=== PATIENT | male | born 1980 | race Caucasian/White ===

== ENCOUNTER 2018-08-10 20:33 | Inpatient (IN) ==
[2018-08-11] MEDS ORDERED: Acetaminophen 325 MG Tablet PO PRN (04:34)
[2018-08-11] MEDS ORDERED: HYDROmorphone PF Inj 2 MG/ML Vial IV.PUSH PRN (04:36)
[2018-08-11] MEDS ORDERED: Methocarbamol 500 MG Tablet PO PRN (04:38)
[2018-08-11] MEDS: oxyCODONE/Acetaminophen 10/325 Tablet PO PRN ×4 (07:08→21:43)
--- NOTE | 2018-08-11 13:09 | P.HP ---
History of Present Illness Primary Care Physician: UNKNOWN Chief Complaint: Back pain with inability to ambulate History of Present Illness: 37-year-old male with known history of back pain who presented to the hospital because of acute onset of back pain and difficulty in ambulating. Patient states that his normal state of health until yesterday when he was rolling up a balloon house and when he was bent over rolling it he heard a pop and had sudden onset of back pain where he only could roll over onto his side. He tried to get up to ambulate but was unable to. States that the only he can move is if he is completely bent over at the waist and take very short steps. Patient states that he has had back injury approximately 4 years ago where he fell off a horse and fracturing L2-L3-L4 transverse processes which has healed and he was doing well in the year ago he had another injury where he strained his back. But he has been doing well up until this injury. Patient states that he has been having pain that radiates down his left leg, he is noticed some numbness and tingling going down his left leg as well. Because he was unable to ambulate he went to emergency department for evaluation. Patient had workup done with CT scan which did not indicate any acute abnormality. Because the patient was having ambulation difficulty the ER physician recommended the patient be admitted the hospital for further evaluation. - Diagnosis (1) Intractable low back pain (2) Lumbar radiculopathy, acute Review of Systems All other systems reviewed negative except as stated in HPI Musculoskeletal: Reports abnormal walking, Reports back pain, Reports numbness, Reports radiating pain into limb PMFSH - History History Provided By: Patient - Medical History Medical History: Medical History (Last Updated 08/11/18 @ 13:05 by EMMA Loredo) History of back pain - Surgical History Surgical History: Surgical History (Last Updated 08/11/18 @ 13:05 by EMMA Loredo) No history of previous surgery - Family History Family History: Family History (Last Updated 08/11/18 @ 13:06 by EMMA Loredo) Other Family history of cancer - Tobacco History Second Hand Smoke Exposure: No Tobacco Use In Past 30 Days: No Smoking Status: Former smoker - Alcohol History How Often Do You Have a Drink Containing Alcohol: 2 to 3 times a week - Substance Use History Substance History: No History of Abuse Medications and Allergies Active Medications: Active Medications Acetaminophen (Tylenol) 650 mg PO Q4H PRN PRN Reason: Temp > 100.4 Hydromorphone HCl (Dilaudid Pf Inj) 0.5 mg IV.PUSH Q4H PRN PRN Reason: BREAKTHROUGH PAIN Methocarbamol 1,000 mg/ (Dextrose) 250 mls @ 500 mls/hr IV.SIG Q8HR [facility] Stop: 08/13/18 22:29 Methocarbamol (Robaxin) 500 mg PO Q8HR PRN PRN Reason: MUSCLE SPASM Ondansetron HCl (Zofran Inj) 4 mg IV.PUSH Q6H PRN PRN Reason: NAUSEA OR VOMITING Last Admin: 08/11/18 04:56 Dose: 4 mg Oxycodone/Acetaminophen (Percocet 10/325 Mg) 1 tab PO Q4H PRN PRN Reason: pain 6 to 10 Last Admin: 08/11/18 11:31 Dose: 1 tab Oxycodone/Acetaminophen (Percocet 5/325 Mg) 1 tab PO Q4H PRN PRN Reason: pain 1 to 5 Allergies Allergy/AdvReac Type Severity Reaction Status Date / Time No Known Allergies Allergy Verified 08/10/18 20:40 Home Medications Medication Instructions Recorded Confirmed Type No Known Home Medications 08/10/18 08/10/18 History Exam Vital signs: Vital Signs 08/11/18 04:36 08/11/18 08:00 08/11/18 08:32 Temperature 96.2 F L 96.9 F L Pulse Rate 61 81 Respiratory Rate 18 20 20 Blood Pressure 125/59 L Pulse Oximetry 96 97 08/11/18 12:00 Temperature 96 F L Pulse Rate 88 Respiratory Rate 20 Blood Pressure 135/70 Pulse Oximetry 100 Intake & Output 08/10/18 08/11/18 08/11/18 18:59 06:59 18:59 Output Total 200 / 200 Balance -200 / -200 Weight 104.4 kg Output: Urine 200 / 200 Other: Date of Last Bowel Movement 08/10/18 08/10/18 Weight On Admission 104.4 kg Narrative: GENERAL: Well-developed, well-nourished, in no acute distress. alert and orientated HEENT: Head is normocephalic without any lesions or masses noted. Facial features are symmetric. Eyes: Pupils equal round reactive to light. Extraocular muscles are intact. Conjunctivae were clear. Oropharyngeal: Pharynx without any erythema edema. Tongue is midline without deviation. Buccal mucosa is moist without any masses or lesions NECK: Supple without any masses. Trachea midline no deviation. No JVD, no bruits are appreciated CARDIAC: Regular rhythm, regular rate. S1/S2 are heard. No murmurs gallops or rubs. LUNGS: Clear to auscultation bilaterally. No wheeze, rhonchi or rales. No use of accessory muscles on inspiration or expiration. ABDOMEN: Soft, nontender. Nondistended. Bowel sounds heard in all 4 quadrants. No organomegaly or masses. Negative rebound, negative guarding EXTREMITIES: No edema, pulses are equal bilaterally. No cyanosis or clubbing NEUROLOGY: Mood and affect appear appropriate. Cranial nerves II through XII grossly intact. Muscle strength 5/5 in upper and lower extremities bilaterally. Deep tendon reflexes are 2+ in upper and lower extremities bilaterally. LUMBAR SPINE: There is mild tenderness noted along the left paraspinal musculature. Patient is able to sit up on bending waist without any pain radiating down his leg. Negative straight leg raise. Negative Forest Carloz. Caprini VTE Risk Assessment Caprini VTE Risk Assessment: No/Low Risk (score <= 1) Caprini Risk Assessment Model: Point Value = 1 Point Value = 2 Point Value = 3 Point Value = 5 Age 41-60 Minor surgery BMI > 25 kg/m2 Swollen legs Varicose veins or History of unexplained or recurrent spontaneous Oral contraceptives or hormone replacement Sepsis (< 1 month) Serious lung disease, including pneumonia (< 1 month) Abnormal pulmonary function Acute myocardial infarction Congestive heart failure (< 1 month) History of inflammatory bowel disease Medical patient at bed rest Age 61-74 Arthroscopic surgery Major open surgery (> 45 min) Laparoscopic surgery (> 45 min) Malignancy Confined to bed (> 72 hours) Immobilizing plaster cast Central venous access Age >= 75 History of VTE Family history of VTE Factor V Leiden Prothrombin [id number] Lupus anticoagulant Anticardiolipin antibodies Elevated serum homocysteine Heparin-induced thrombocytopenia Other congenital or acquired thrombophilia Stroke (< 1 month) Elective arthroplasty Hip, pelvis, or leg fracture Acute spinal cord injury (< 1 month) Prophylaxis Regimen: Total Risk Factor Score Risk Level Prophylaxis Regimen 0-1 Low Early ambulation 2 Moderate Order ONE of the following: *Sequential Compression Device (SCD) *Heparin 5000 units SQ BID 3-4 Higher Order ONE of the following medications: *Heparin 5000 units SQ TID *Enoxaparin/Lovenox 40 mg SQ daily (WT < 150 kg, CrCl > 30 mL/min) *Enoxaparin/Lovenox 30 mg SQ daily (WT < 150 kg, CrCl > 10-29 mL/min) *Enoxaparin/Lovenox 30 mg SQ BID (WT < 150 kg, CrCl > 30 mL/min) AND/OR *Sequential Compression Device (SCD) 5 or more Highest Order ONE of the following medications: *Heparin 5000 units SQ TID (Preferred with Epidurals) *Enoxaparin/Lovenox 40 mg SQ daily (WT < 150 kg, CrCl > 30 mL/min) *Enoxaparin/Lovenox 30 mg SQ daily (WT < 150 kg, CrCl > 10-29 mL/min) *Enoxaparin/Lovenox 30 mg SQ BID (WT < 150 kg, CrCl > 30 mL/min) AND *Sequential Compression Device (SCD) Assessment and Plan - Assessment (1) Intractable low back pain Code(s): M54.5 - Low back pain Status: Acute (2) Lumbar radiculopathy, acute Code(s): M54.16 - Radiculopathy, lumbar region Status: Acute - Plan Acute on chronic back pain with acute radiculopathy. -CT scan does not indicate any acute abnormality -MRI of the lumbar spine was performed and indicated large central herniation at L2-L3 causing severe canal stenosis, small central protrusion L4-L5 without canal stenosis. Mild right-sided broad-based protrusion L5-S1 without canal stenosis -Percocet for pain control, Dilaudid for breakthrough pain. -We will give Toradol 30 mg IM x1 and start Robaxin IV -Physical therapy evaluation -Consult neurosurgery for evaluation and recommendations DVT prevention -Low risk, early ambulation
--- NOTE | 2018-08-11 13:42 | MR ---
EXAM DATE: 08/11/2018 12:42 PM EDT AGE/SEX: 37 years / Male INDICATIONS: HNP. Back pain that radiates to left leg. CLINICAL DATA: This is the patient's subsequent encounter. Patient reports that signs and symptoms h ave been present for 2 days and indicates a pain score of 8/10. MEDICAL/SURGICAL HISTORY: None. None. COMPARISON: [facility], CT LUMBAR SPINE W/O CONTRAST, 08/10/2018. . TECHNIQUE: Multiplanar, multisequence MRI of the lumbar spine was performed without contrast. Patie nt was scanned in a sitting position; neutral, flexion, and extension scans were performed in the sa gittal plane. FINDINGS: Vertebra: Homogeneous signal. Normal alignment. Disc space narrowing L2-3 and L5-S1 levels. Disc de siccation L4-5 L5-S1 levels. Degenerative disc disease at L5-S1 with chronic endplate changes. Conus: Normal level and configuration. T12-L1: The thecal sac has a normal diameter. No evidence of disc bulge or protrusion. The neural foramina are patent bilaterally. L1-L2: The thecal sac has a normal diameter. No evidence of disc bulge or protrusion. The neural foramina are patent bilaterally. L2-L3: Large central protrusion with extruded component extending superiorly and inferiorly underne ath the posterior longitudinal ligament compresses the thecal sac posteriorly and causes severe canal stenosis. The neural foramina are patent bilaterally. L3-L4: The thecal sac has a normal diameter. No evidence of disc bulge or protrusion. The neural foramina are patent bilaterally. L4-L5: Small central protrusion abuts the ventral thecal sac without canal stenosis. The neural fo ramina are patent bilaterally. L5-S1: Mild right-sided broad-based protrusion abuts the ventral thecal sac and abuts the right S1 nerve root lateral recess. No canal stenosis. The neural foramina are patent bilaterally. CONCLUSION: 1. Large central herniation at L2-3 causing severe canal stenosis. 2. Small central protrusion L4-5 without canal stenosis. 3. Mild right-sided broad-based protrusion L5-S1 without canal stenosis. Electronically signed by: Mg Luna MD 08/11/2018 1:40 PM EDT
[2018-08-11] MEDS: Methocarbamol Inj 1,000 MG in Dextrose 5% in Water Inj 240 ML IV.SIG SCH ×4 (15:07→21:44)
--- NOTE | 2018-08-11 19:36 | P.CONNS ---
History of Present Illness Service: Neurosurgery Consult date: 08/11/18 Requesting Physician: Mg Amos Reason for Consult: Lumbar L2-3 disc herniation Primary Care Provider: UNKNOWN Chief Complaint: Back pain with inability to ambulate History of Present Illness: 37-year-old gentleman with an acute onset of severe low back pain yesterday while trying to fold balloon house and heard pop in his back with severe pain that radiates into the left anterolateral thigh down to the knee with associated numbness and subjective weakness. He denies any right lower extremity symptoms or any bowel bladder incontinence. He was seen in [facility][1] emergency room and workup included MRI scan lumbar spine which reveals a large disc herniation at the L2-3 level with severe spinal stenosis and mild disc degeneration. He also has mild disc protrusions at L4-5 and L5-S1 levels with associated disc degeneration. He relates a chronic history of low back pain with intermittent flareups with the last one 2 years ago which responded well to epidural steroid injections and conservative management. He works as a entry driver operator. He was transferred to [facility] facility for further management and neurosurgical consultation requested. Review of Systems Constitutional: Denies anorexia, Denies body ache(s), Denies chills, Denies daytime sleepiness, Denies excessive sweating, Denies fatigue, Denies fever(s), Denies headache(s), Denies increased appetite, Denies lack of energy, Denies malaise, Denies night sweats, Denies weakness, Denies weight gain, Denies weight loss, Denies other Eyes: Denies blind spots, Denies blurry vision, Denies bulging eyes, Denies change in vision, Denies double vision, Denies discharge, Denies dry eyes, Denies floaters, Denies irritation, Denies itchy eyes, Denies loss of vision, Denies pain, Denies requires corrective lenses, Denies sensitivity to light, Denies other Ears, Nose, Mouth, and Throat: Denies abnormal hearing, Denies bleeding gums, Denies bad breath, Denies change in voice, Denies dental pain, Denies difficulty swallowing, Denies dizziness, Denies dry mouth, Denies ear discharge , Denies ear pain, Denies facial pain, Denies headache(s), Denies hearing loss, Denies hoarseness, Denies lip swelling, Denies nosebleed, Denies mouth lesions, Denies mouth pain, Denies nasal congestion, Denies nasal discharge, Denies nasal obstruction, Denies nasal trauma, Denies neck lump, Denies neck pain, Denies nose pain, Denies pain with swallowing, Denies poor balance, Denies post nasal drip, Denies ringing in the ears, Denies sinus pain, Denies sinus pressure , Denies sore throat, Denies throat swelling, Denies tongue swelling, Denies other Cardiovascular: Denies chest pain, Denies chest pain at rest, Denies chest pain with activity, Denies excessive sweating, Denies fainting, Denies fast heart rate, Denies foot swelling, Denies generalized swelling, Denies irregular heart rhythm, Denies leg pain with activity, Denies leg sores, Denies leg swelling, Denies lightheadedness, Denies radiating jaw, neck or arm pain, Denies rapid, pounding, or irregular heartbeat, Denies shortness of breath, Denies shortness of breath with activity, Denies shortness of breath when lying down, Denies shortness of breath causing sudden awakening, Denies slow heart rate, Denies other Respiratory: Denies change in phlegm color, Denies chest congestion, Denies cough, Denies coughing up blood, Denies excessive phlegm production, Denies pain on inspiration, Denies pain with cough, Denies shortness of breath, Denies shortness of breath with activity, Denies snoring, Denies stridor, Denies wheezing, Denies other Gastrointestinal: Denies abdominal pain, Denies belching, Denies black, tarry stools, Denies bloating, Denies bright, red blood in stools, Denies change in bowel habits, Denies constant urge to pass stool, Denies change in stools, Denies coffee ground vomit, Denies constipation, Denies cramping, Denies difficulty swallowing, Denies excessive passing of gas, Denies feeling full early, Denies heartburn, Denies incontinent of stools, Denies loose stools, Denies nausea, Denies pain with swallowing, Denies vomiting, Denies vomiting blood, Denies other Genitourinary: Denies blood in semen, Denies blood in urine, Denies decreased urination, Denies difficulty urinating, Denies difficulty with ejaculations, Denies erectile dysfunction, Denies genital lesions, Denies genital pain, Denies painful urination, Denies side pain, Denies frequent nighttime urination , Denies painful ejaculations, Denies penile discharge, Denies scrotal swelling , Denies testicle lump, Denies testicle pain, Denies urinary frequency, Denies urinary hesitancy, Denies urinary incontinence, Denies urinary urgency, Denies other Musculoskeletal: Reports abnormal walking, Reports back pain, Reports muscle weakness, Reports numbness, Reports radiating pain into limb Skin/Breast: Denies acne, Denies bleeding lesions, Denies boil, Denies breast swelling, Denies breast skin changes, Denies breast pain, Denies breast lump, Denies change in breast shape, Denies change in hair, Denies change in skin color, Denies changing lesions, Denies dry skin, Denies excessive hair growth, Denies hair loss, Denies itching, Denies lesions, Denies nail changes, Denies new lesions, Denies nipple discharge, Denies non-healing lesions, Denies redness , Denies sensitivity to light, Denies rash, Denies skin pain, Denies skin ulcer , Denies sores, Denies stretch nicolas, Denies unusual bruising, Denies wounds, Denies yellowing of the skin, Denies other Neurologic: Reports radiating pain, Reports sensory deficit, Reports tingling/ numbness/burning sensations, Reports weakness, Denies abnormal hearing, Denies abnormal movements, Denies abnormal speech, Denies abnormal walking, Denies behavioral changes, Denies burning sensations, Denies confusion, Denies dizziness, Denies fainting, Denies frequent falls, Denies headache(s), Denies lack of coordination, Denies localized weakness, Denies loss of vision, Denies memory loss, Denies numbness, Denies other visual disturbances, Denies restless legs, Denies convulsions, Denies seizure-like activity, Denies tingling, Denies tremor(s), Denies unsteadiness, Denies other Psychiatric: Denies abnormal sleep pattern, Denies anxiety, Denies behavioral changes, Denies change in appetite, Denies change in sex drive, Denies confusion , Denies depression, Denies difficulty concentrating, Denies hearing things others do not hear, Denies hopelessness, Denies irritability, Denies lack of enjoyment, Denies memory loss, Denies mood swings, Denies panic attacks, Denies paranoia, Denies seeing things others do not see, Denies sensing things others do not sense, Denies tactile hallucinations, Denies thoughts of hurting/killing others, Denies thoughts of hurting/killing yourself, Denies other Endocrine: Denies cold intolerance, Denies excessive sweating, Denies flushing, Denies heat intolerance, Denies increased hunger, Denies increased thirst, Denies increased urination, Denies rapid, pounding, or irregular heartbeat, Denies other Hematologic/Lymphatic: Denies easy bleeding, Denies easy bruising, Denies enlarged lymph nodes, Denies other Allergic/Immunologic: Denies GI upset with certain foods, Denies hives, Denies itchy eyes, Denies lip swelling, Denies seasonal runny nose, Denies throat swelling, Denies tongue swelling, Denies wheezing, Denies other PMFSH - History History Provided By: Patient - Medical History Medical History: Medical History (Last Reviewed 08/11/18 @ 19:32 by Parker Moeller MD) History of back pain - Surgical History Surgical History: Surgical History (Last Reviewed 08/11/18 @ 19:32 by Parker Moeller MD) No history of previous surgery - Family History Family History: Family History (Last Reviewed 08/11/18 @ 19:32 by Parker Moeller MD) Other Family history of cancer - Tobacco History Second Hand Smoke Exposure: No Tobacco Use In Past 30 Days: No Smoking Status: Former smoker - Alcohol History How Often Do You Have a Drink Containing Alcohol: 2 to 3 times a week - Substance Use History Substance History: No History of Abuse Medications and Allergies Active Medications: Active Medications Acetaminophen (Tylenol) 650 mg PO Q4H PRN PRN Reason: Temp > 100.4 Methocarbamol 1,000 mg/ (Dextrose) 250 mls @ 500 mls/hr IV.SIG Q8HR [facility]NELIUS Stop: 08/14/18 06:29 Last Infusion: 08/11/18 16:10 Dose: Infused Ondansetron HCl (Zofran Inj) 4 mg IV.PUSH Q6H PRN PRN Reason: NAUSEA OR VOMITING Last Admin: 08/11/18 04:56 Dose: 4 mg Oxycodone/Acetaminophen (Percocet 10/325 Mg) 1 tab PO Q4H PRN PRN Reason: pain 6 to 10 Last Admin: 08/11/18 16:42 Dose: 1 tab Oxycodone/Acetaminophen (Percocet 5/325 Mg) 1 tab PO Q4H PRN PRN Reason: pain 1 to 5 Allergies Allergy/AdvReac Type Severity Reaction Status Date / Time No Known Allergies Allergy Verified 08/10/18 20:40 Home Medications Medication Instructions Recorded Confirmed Type No Known Home Medications 08/10/18 08/10/18 History Exam Vital signs: Vital Signs 08/11/18 04:36 08/11/18 08:00 08/11/18 08:32 Temperature 96.2 F L 96.9 F L Pulse Rate 61 81 Respiratory Rate 18 20 20 Blood Pressure 125/59 L Pulse Oximetry 96 97 08/11/18 12:00 08/11/18 14:46 08/11/18 16:00 Temperature 96 F L 97.8 F Pulse Rate 88 100 H Respiratory Rate 20 20 20 Blood Pressure 135/70 137/74 Pulse Oximetry 100 94 L 08/11/18 16:36 Temperature Pulse Rate Respiratory Rate 20 Blood Pressure Pulse Oximetry Intake & Output 08/11/18 08/11/18 08/12/18 06:59 18:59 06:59 Intake Total 692 / 692 Output Total 200 / 200 Balance -200 / -200 692 / 692 Weight 104.4 kg Intake: IV 250 / 250 Robaxin Inj 1,000 MG In D5W Inj 250 / 250 240 ML @ 500 mls/hr IV.SIG Q8HR [facility] Rx#:[id number] Oral 442 / 442 Output: Urine 200 / 200 Other: # Voids 2 Date of Last Bowel Movement 08/10/18 08/10/18 Weight On Admission 104.4 kg - Constitutional mild distress - Routine HEENT Exam Head: Present: normocephalic, atraumatic Eye: Present: EOMI, PERRL ENT: Present: mucous membranes moist, oropharynx clear, external ear normal - Routine Neck Exam Present: supple, full ROM - Routine Respiratory Exam Present: CTA bilaterally - Routine Cardiovascular Exam Present: RRR, S1, S2 - Routine Abdominal Exam Present: soft, normoactive bowel sounds - Routine Extremities Exam Present: full ROM - Routine Skin Exam Present: intact - Routine Neurological Exam Present: oriented X3, CN II-XII intact, sensory deficit (Left anterolateral thigh and lateral calf area decreased sensation to light touch), motor deficit ( Giveaway weakness in the left iliopsoas and quadriceps; good strength in dorsiflexion plantarflexion in the left leg and the right leg 5/5 strength), plantar reflex, moving all extremities, vision grossly intact, normal speech Results - Diagnostic Findings Additional findings: Impressions Lumbar Spine MRI 08/11/18 00:00 CONCLUSION: 1. Large central herniation at L2-3 causing severe canal stenosis. 2. Small central protrusion L4-5 without canal stenosis. 3. Mild right-sided broad-based protrusion L5-S1 without canal stenosis. Assessment and Plan - Assessment (1) Herniated nucleus pulposus, L2-3 Code(s): M51.26 - Other intervertebral disc displacement, lumbar region Status : Acute (2) Intractable low back pain Code(s): M54.5 - Low back pain Status: Acute (3) Lumbar radiculopathy, acute Code(s): M54.16 - Radiculopathy, lumbar region Status: Acute - Plan 37-year-old gentleman with a large L2-3 disc herniation and severe stenosis spinal stenosis with intractable back pain and left L2-L3 radiculopathy. Treatment options were discussed including continued consider management with physical therapy and pain management as well as course of epidural steroid injections. The option of L2-3 microdiscectomy was also discussed along with the risks and benefits involved. He will contemplate on his options with his family and inform us of his decision accordingly.
[2018-08-12] MEDS: oxyCODONE/Acetaminophen 10/325 Tablet PO PRN ×5 (03:58→20:49)
[2018-08-12] MEDS: Methocarbamol Inj 1,000 MG in Dextrose 5% in Water Inj 240 ML IV.SIG SCH ×6 (05:45→21:21)
[2018-08-12 11:24] LABS: Baso % (Auto) 0.3 % (0.0-2.0); Eos # (Auto) 0.1 th/mm3 (0.0-0.4); Eos % (Auto) 1.6 % (0.0-4.0); Hematocrit 44.4 % (39.0-51.0); Hemoglobin 15.4 gm/dL (13.0-17.0); Lymph # (Auto) 2.6 th/mm3 (1.0-4.8); Lymph % (Auto) 31.7 % (9.0-44.0); Mean Corpuscular HGB Conc 34.6 % (32.0-36.0); Mean Corpuscular Hemoglobin 30.1 pg (27.0-34.0); Mean Corpuscular Volume 87.1 fL (80.0-100.0); Mean Platelet Volume 8.4 fL (7.0-11.0); Mono # (Auto) 0.8 th/mm3 (0.0-0.9); Mono % (Auto) 9.2 % (0.0-8.0); Neut # (Auto) 4.7 th/mm3 (1.8-7.7); Neut % (Auto) 57.2 % (16.0-70.0); Platelet Count 259 th/mm3 (150-450); Red Cell Distribution Width 13.6 % (11.6-17.2); White Blood Count 8.3 th/mm3 (4.0-11.0)
[2018-08-12 11:37] LABS: Alanine Aminotransferase 27 U/L (12-78); Albumin 3.8 g/dL (3.4-5.0); Anion Gap 7 meq/L (5-15); Aspartate Aminotransferase 24 U/L (15-37); Blood Urea Nitrogen 9 mg/dL (7-18); Calcium 8.4 mg/dL (8.5-10.1); Carbon Dioxide 32.1 meq/L (21.0-32.0); Chloride 103 meq/L (98-107); Glomerular Filtration Rate 54 mL/min (>89); Glucose,Random 95 mg/dL (74-106); Potassium 4.2 meq/L (3.5-5.1); Sodium 142 meq/L (136-145)
[2018-08-12 11:45] LABS: Alkaline Phosphatase 59 U/L (45-117); Free T4 (Free Thyroxine) 1.15 ng/dL (0.76-1.46); Phosphorus 3.5 mg/dL (2.5-4.9); Total Protein 6.9 g/dL (6.4-8.2)
[2018-08-12] MEDS ORDERED: Morphine Sulfate Inj 2 MG/ML Vial IV.PUSH PRN (12:08)
[2018-08-12] MEDS ORDERED: Naloxone Inj 0.4 MG/ML Vial IV.PUSH PRN (12:08)
[2018-08-12] MEDS ORDERED: Morphine Inj 4 MG/ML Vial IV.PUSH PRN ×3 (12:08)
--- NOTE | 2018-08-12 12:11 | P.PNIM ---
Subjective Interval history: Chief Complaint: Back pain with inability to ambulate History of Present Illness: 37-year-old male with known history of back pain who presented to the hospital because of acute onset of back pain and difficulty in ambulating. Patient states that his normal state of health until yesterday when he was rolling up a balloon house and when he was bent over rolling it he heard a pop and had sudden onset of back pain where he only could roll over onto his side. He tried to get up to ambulate but was unable to. States that the only he can move is if he is completely bent over at the waist and take very short steps. Patient states that he has had back injury approximately 4 years ago where he fell off a horse and fracturing L2-L3-L4 transverse processes which has healed and he was doing well in the year ago he had another injury where he strained his back. But he has been doing well up until this injury. Patient states that he has been having pain that radiates down his left leg, he is noticed some numbness and tingling going down his left leg as well. Because he was unable to ambulate he went to emergency department for evaluation. Patient had workup done with CT scan which did not indicate any acute abnormality. Because the patient was having ambulation difficulty the ER physician recommended the patient be admitted the hospital for further evaluation. 10-11 SEEN BY NEUROSURGERY PATIENT STATES HE IS CONSIDERING SURGERY IF IT IS OFFERED TO HIM STILL HAVING PAIN AND NUMBNESS GOING DOWN LEFT LEG DW PT AND RN WILL CONSULT PT AND OT LABS START FLUIDS FOR DEHYDRATION AND RENAL INSUFFICIENCY Physical Exam Vital signs: Vital Signs 08/11/18 14:46 08/11/18 16:00 08/11/18 16:36 Temperature 97.8 F Pulse Rate 100 H Respiratory Rate 20 20 20 Blood Pressure 137/74 Pulse Oximetry 94 L 08/11/18 20:00 08/12/18 00:00 08/12/18 04:00 Temperature 98.4 F 97.8 F 97.4 F L Pulse Rate 70 63 71 Respiratory Rate 18 16 16 Blood Pressure 147/86 H 150/67 H 134/64 Pulse Oximetry 97 95 08/12/18 08:00 Temperature 97.4 F L Pulse Rate 57 L Respiratory Rate 18 Blood Pressure 120/86 Pulse Oximetry 96 Intake & Output 08/11/18 08/12/18 08/12/18 18:59 06:59 18:59 Intake Total 692 / 692 1210 / 1210 Output Total 700 / 700 Balance 692 / 692 510 / 510 Weight 106.7 kg Intake: IV 250 / 250 500 / 500 Robaxin Inj 1,000 MG In D5W Inj 250 / 250 500 / 500 240 ML @ 500 mls/hr IV.SIG Q8HR CORNELIUS Rx#:[id number] Oral 442 / 442 710 / 710 Output: Urine 700 / 700 Other: # Voids 2 Date of Last Bowel Movement 08/10/18 08/10/18 # Bowel Movements 0 Narrative: GENERAL: Well-developed, well-nourished, in no acute distress. alert and orientated HEENT: Head is normocephalic without any lesions or masses noted. Facial features are symmetric. Eyes: Pupils equal round reactive to light. Extraocular muscles are intact. Conjunctivae were clear. Oropharyngeal: Pharynx without any erythema edema. Tongue is midline without deviation. Buccal mucosa is moist without any masses or lesions NECK: Supple without any masses. Trachea midline no deviation. No JVD, no bruits are appreciated CARDIAC: Regular rhythm, regular rate. S1/S2 are heard. No murmurs gallops or rubs. LUNGS: Clear to auscultation bilaterally. No wheeze, rhonchi or rales. No use of accessory muscles on inspiration or expiration. ABDOMEN: Soft, nontender. Nondistended. Bowel sounds heard in all 4 quadrants. No organomegaly or masses. Negative rebound, negative guarding EXTREMITIES: No edema, pulses are equal bilaterally. No cyanosis or clubbing NEUROLOGY: Mood and affect appear appropriate. Cranial nerves II through XII grossly intact. Muscle strength 5/5 in upper and lower extremities bilaterally. Deep tendon reflexes are 2+ in upper and lower extremities bilaterally. LUMBAR SPINE: There is mild tenderness noted along the left paraspinal musculature. Patient is able to sit up on bending waist without any pain radiating down his leg. Negative straight leg raise. Negative Forest Carloz. Results - Labs CBC & Chem 7: 08/12/18 10:34 08/12/18 10:34 Laboratory Results - last 24 hr 08/12/18 08/12/18 10:34 10:34 WBC 8.3 RBC 5.10 Hgb 15.4 Hct 44.4 MCV 87.1 MCH 30.1 MCHC 34.6 RDW 13.6 Plt Count 259 MPV 8.4 Neut % (Auto) 57.2 Lymph % (Auto) 31.7 Dawes % (Auto) 9.2 H Eos % (Auto) 1.6 Baso % (Auto) 0.3 Neut # (Auto) 4.7 Lymph # (Auto) 2.6 Dawes # (Auto) 0.8 Eos # (Auto) 0.1 Baso # (Auto) 0.0 WBC Differential . Differential Comment Auto diff final Sodium 142 Potassium 4.2 Chloride 103 Carbon Dioxide 32.1 H Anion Gap 7 BUN 9 Creatinine 1.49 H Estimated GFR 54 L Random Glucose 95 Calcium 8.4 L Phosphorus 3.5 Magnesium 2.0 Total Bilirubin 0.7 AST 24 ALT 27 Alkaline Phosphatase 59 Total Protein 6.9 Albumin 3.8 TSH 1.960 Free T4 1.15 - Imaging Impressions Lumbar Spine MRI 08/11/18 00:00 CONCLUSION: 1. Large central herniation at L2-3 causing severe canal stenosis. 2. Small central protrusion L4-5 without canal stenosis. 3. Mild right-sided broad-based protrusion L5-S1 without canal stenosis. Assessment and Plan - Assessment (1) Intractable low back pain Code(s): M54.5 - Low back pain Status: Acute (2) Lumbar radiculopathy, acute Code(s): M54.16 - Radiculopathy, lumbar region Status: Acute - Plan Acute on chronic back pain with acute radiculopathy. -CT scan does not indicate any acute abnormality -MRI of the lumbar spine was performed and indicated large central herniation at L2-L3 causing severe canal stenosis, small central protrusion L4-L5 without canal stenosis. Mild right-sided broad-based protrusion L5-S1 without canal stenosis -Percocet for pain control, Dilaudid for breakthrough pain. -We will give Toradol 30 mg IM x1 and start Robaxin IV -Physical therapy evaluation -Consult neurosurgery for evaluation and recommendations PT AND OT TO EVAL AND TREAT RENAL INSUFFICIENCY/DEHYDRATION FLUIDS AVOID NEPHROTOXIC MEDS AM LAB DVT prevention -Low risk, early ambulation Code Status: FULL CODE Discussed Condition With: RN AND PT AND CM Discharge Planning: PENDING NEUROSURGERY CLEARANCE
[2018-08-12] MEDS ORDERED: Sodium Chloride 0.9% 2 ML Flush PRN IV.FLUSH (12:39)
[2018-08-12 12:48] LABS: Hemoglobin A1c 5.3 % (4.3-6.0)
[2018-08-12] MEDS: Sod Chloride 0.9% Inj 1,000 ML IV.CONT SCH ×3 (13:52→22:45)
--- NOTE | 2018-08-12 17:07 | P.PNNS ---
Subjective Interval history: 37-year-old gentleman with intractable back pain and radiculopathy with a large L2-3 disc herniation with severe spinal stenosis. He relates that the symptoms are worsened today with pain also radiating to the right thigh and he feels like his legs are giving out on him when trying to walk. Patient and his are requesting to proceed with surgery. Physical Exam Vital signs: Vital Signs 08/11/18 20:00 08/12/18 00:00 08/12/18 04:00 Temperature 98.4 F 97.8 F 97.4 F L Pulse Rate 70 63 71 Respiratory Rate 18 16 16 Blood Pressure 147/86 H 150/67 H 134/64 Pulse Oximetry 97 95 08/12/18 08:00 08/12/18 12:00 Temperature 97.4 F L 98.5 F Pulse Rate 57 L 64 Respiratory Rate 18 18 Blood Pressure 120/86 120/73 Pulse Oximetry 96 95 Intake & Output 08/11/18 08/12/18 08/12/18 18:59 06:59 18:59 Intake Total 692 / 692 1210 / 1210 Output Total 700 / 700 Balance 692 / 692 510 / 510 Weight 106.7 kg Intake: IV 250 / 250 500 / 500 Robaxin Inj 1,000 MG In D5W Inj 250 / 250 500 / 500 240 ML @ 500 mls/hr IV.SIG Q8HR CORNELIUS Rx#:[id number] Oral 442 / 442 710 / 710 Output: Urine 700 / 700 Other: # Voids 2 Date of Last Bowel Movement 08/10/18 08/10/18 # Bowel Movements 0 - Constitutional mild distress, average body habitus - Routine HEENT Exam Head: Present: normocephalic, atraumatic Eye: Present: EOMI, PERRL ENT: Present: mucous membranes moist, oropharynx clear, external ear normal - Routine Neck Exam Present: supple, full ROM - Routine Respiratory Exam Present: CTA bilaterally - Routine Cardiovascular Exam Present: RRR, S1, S2 - Routine Abdominal Exam Present: soft, normoactive bowel sounds - Routine Extremities Exam Present: full ROM - Routine Skin Exam Present: intact - Routine Neurological Exam Present: oriented X3, CN II-XII intact, sensory deficit (Numbness in the anterolateral left thigh and calf), motor deficit (Giveaway weakness iliopsoas and quadriceps left more than right), plantar reflex, normal speech Assessment and Plan - Assessment (1) Herniated nucleus pulposus, L2-3 Code(s): M51.26 - Other intervertebral disc displacement, lumbar region Status : Acute (2) Intractable low back pain Code(s): M54.5 - Low back pain Status: Acute (3) Lumbar radiculopathy, acute Code(s): M54.16 - Radiculopathy, lumbar region Status: Acute - Plan 37-year-old gentleman with a large L2-3 disc herniation and severe stenosis spinal stenosis with intractable back pain, numbness and subjective weakness with difficulty ambulating. Procedure of L2-3 hemilaminotomy with microdiscectomy was discussed along with the risks and benefits involved. No guarantees given. Patient and his had multiple questions which were answered and they are requesting to proceed and accordingly this will be scheduled for tomorrow.
[2018-08-12] MEDS ORDERED: Bisacodyl 10 MG Supp RECTAL PRN (17:39)
[2018-08-12] MEDS: Senna/Docusate Sodium 8.6/50 MG Tablet PO SCH (20:49)
[2018-08-12] MEDS: Sodium Chloride 0.9% 2 ML Flush BID IV.FLUSH SCH (20:50)
[2018-08-13] MEDS: oxyCODONE/Acetaminophen 10/325 Tablet PO PRN ×4 (03:45→20:50)
[2018-08-13] MEDS: Methocarbamol Inj 1,000 MG in Dextrose 5% in Water Inj 240 ML IV.SIG SCH ×6 (05:30→21:05)
[2018-08-13] MEDS: Sod Chloride 0.9% Inj 1,000 ML IV.CONT SCH ×3 (06:51→20:47)
[2018-08-13] MEDS: Senna/Docusate Sodium 8.6/50 MG Tablet PO SCH ×2 (08:06→20:50)
[2018-08-13] MEDS: Sodium Chloride 0.9% 2 ML Flush BID IV.FLUSH SCH ×2 (08:06→20:51)
[2018-08-13 10:33] LABS: Baso % (Auto) 0.4 % (0.0-2.0); Eos # (Auto) 0.3 th/mm3 (0.0-0.4); Eos % (Auto) 3.3 % (0.0-4.0); Hematocrit 44.2 % (39.0-51.0); Hemoglobin 15.1 gm/dL (13.0-17.0); Lymph # (Auto) 2.3 th/mm3 (1.0-4.8); Mean Corpuscular HGB Conc 34.1 % (32.0-36.0); Mean Corpuscular Hemoglobin 29.8 pg (27.0-34.0); Mean Corpuscular Volume 87.3 fL (80.0-100.0); Mono # (Auto) 0.7 th/mm3 (0.0-0.9); Mono % (Auto) 8.9 % (0.0-8.0); Neut # (Auto) 4.4 th/mm3 (1.8-7.7); Neut % (Auto) 57.4 % (16.0-70.0); Platelet Count 265 th/mm3 (150-450); Red Blood Count 5.06 mil/mm3 (4.50-5.90); Red Cell Distribution Width 13.3 % (11.6-17.2); White Blood Count 7.7 th/mm3 (4.0-11.0)
[2018-08-13 11:16] LABS: Alanine Aminotransferase 27 U/L (12-78); Albumin 3.8 g/dL (3.4-5.0); Anion Gap 7 meq/L (5-15); Aspartate Aminotransferase 22 U/L (15-37); Blood Urea Nitrogen 10 mg/dL (7-18); Calcium 8.3 mg/dL (8.5-10.1); Carbon Dioxide 31.7 meq/L (21.0-32.0); Chloride 106 meq/L (98-107); Glomerular Filtration Rate 57 mL/min (>89); Glucose,Random 82 mg/dL (74-106); Magnesium 2.2 mg/dL (1.5-2.5); Phosphorus 3.4 mg/dL (2.5-4.9); Potassium 4.3 meq/L (3.5-5.1); Sodium 145 meq/L (136-145)
[2018-08-13 11:18] LABS: Alkaline Phosphatase 58 U/L (45-117); Total Protein 6.8 g/dL (6.4-8.2)
--- NOTE | 2018-08-13 11:44 | P.PNIM ---
Subjective Interval history: 37-year-old male with known history of back pain who presented to the hospital because of acute onset of back pain and difficulty in ambulating. Patient states that his normal state of health until yesterday when he was rolling up a balloon house and when he was bent over rolling it he heard a pop and had sudden onset of back pain where he only could roll over onto his side. He tried to get up to ambulate but was unable to. States that the only he can move is if he is completely bent over at the waist and take very short steps. Patient states that he has had back injury approximately 4 years ago where he fell off a horse and fracturing L2-L3-L4 transverse processes which has healed and he was doing well in the year ago he had another injury where he strained his back. But he has been doing well up until this injury. Patient states that he has been having pain that radiates down his left leg, he is noticed some numbness and tingling going down his left leg as well. Because he was unable to ambulate he went to emergency department for evaluation. Patient had workup done with CT scan which did not indicate any acute abnormality. Because the patient was having ambulation difficulty the ER physician recommended the patient be admitted the hospital for further evaluation. 10-11 SEEN BY NEUROSURGERY PATIENT STATES HE IS CONSIDERING SURGERY IF IT IS OFFERED TO HIM STILL HAVING PAIN AND NUMBNESS GOING DOWN LEFT LEG DW PT AND RN WILL CONSULT PT AND OT LABS START FLUIDS FOR DEHYDRATION AND RENAL INSUFFICIENCY 08-13 TO HAVE PROCEDURE OF L2-L3 HEMILAMINOTOMY WITH MICRODISCECTOMY TONIGHT WITH DR KATE HAD GOOD BMS CONSTIPATION IS RESOLVED REMAINS RENAL INSUFFICIENT CONTINUE IV FLUIDS DW RN AND PT AND CM Physical Exam Vital signs: Vital Signs 08/12/18 12:00 08/12/18 16:00 08/12/18 20:00 Temperature 98.5 F 98.4 F 97.8 F Pulse Rate 64 61 79 Respiratory Rate 18 18 16 Blood Pressure 120/73 123/80 132/62 Pulse Oximetry 95 96 95 08/13/18 00:00 08/13/18 04:00 08/13/18 08:00 Temperature 97.7 F 98.1 F 97.6 F Pulse Rate 67 58 L 62 Respiratory Rate 16 16 18 Blood Pressure 129/67 126/79 121/76 Pulse Oximetry 93 L 96 97 Intake & Output 08/12/18 08/13/1818 18:59 06:59 18:59 Intake Total 250 / 250 2780 / 2780 Output Total 900 / 900 Balance 250 / 250 1880 / 1880 Weight 106.9 kg Intake: IV 250 / 250 2300 / 2300 NS Inj 1,000 ML @ 125 mls/hr IV 1800 / 1800 .CONT .Q8H CORNELIUS Rx#:[id number] Robaxin Inj 1,000 MG In D5W Inj 250 / 250 500 / 500 240 ML @ 500 mls/hr IV.SIG Q8HR CORNELIUS Rx#:[id number] Oral 480 / 480 Output: Urine 900 / 900 Other: Date of Last Bowel Movement 08/10/18 # Bowel Movements 0 Narrative: GENERAL: Well-developed, well-nourished, in no acute distress. alert and orientated HEENT: Head is normocephalic without any lesions or masses noted. Facial features are symmetric. Eyes: Pupils equal round reactive to light. Extraocular muscles are intact. Conjunctivae were clear. Oropharyngeal: Pharynx without any erythema edema. Tongue is midline without deviation. Buccal mucosa is moist without any masses or lesions NECK: Supple without any masses. Trachea midline no deviation. No JVD, no bruits are appreciated CARDIAC: Regular rhythm, regular rate. S1/S2 are heard. No murmurs gallops or rubs. LUNGS: Clear to auscultation bilaterally. No wheeze, rhonchi or rales. No use of accessory muscles on inspiration or expiration. ABDOMEN: Soft, nontender. Nondistended. Bowel sounds heard in all 4 quadrants. No organomegaly or masses. Negative rebound, negative guarding EXTREMITIES: No edema, pulses are equal bilaterally. No cyanosis or clubbing NEUROLOGY: Mood and affect appear appropriate. Cranial nerves II through XII grossly intact. Muscle strength 5/5 in upper and lower extremities bilaterally. Deep tendon reflexes are 2+ in upper and lower extremities bilaterally. LUMBAR SPINE: There is mild tenderness noted along the left paraspinal musculature. Patient is able to sit up on bending waist without any pain radiating down his leg. Negative straight leg raise. Negative Forest Carloz. Results - Labs CBC & Chem 7: 08/13/18 08:54 08/13/18 08:54 Laboratory Results - last 24 hr 08/12/18 08/12/18 08/13/18 10:34 10:34 08:54 WBC 7.7 RBC 5.06 Hgb 15.1 Hct 44.2 MCV 87.3 MCH 29.8 MCHC 34.1 RDW 13.3 Plt Count 265 MPV 8.0 Neut % (Auto) 57.4 Lymph % (Auto) 30.0 Millard % (Auto) 8.9 H Eos % (Auto) 3.3 Baso % (Auto) 0.4 Neut # (Auto) 4.4 Lymph # (Auto) 2.3 Millard # (Auto) 0.7 Eos # (Auto) 0.3 Baso # (Auto) 0.0 WBC Differential . Differential Comment Auto diff final Sodium Potassium Chloride Carbon Dioxide Anion Gap BUN Creatinine Estimated GFR Random Glucose Hemoglobin A1c 5.3 Calcium Phosphorus 3.5 Magnesium Total Bilirubin 0.7 AST ALT Alkaline Phosphatase 59 Total Protein 6.9 Albumin TSH 1.960 Free T4 1.15 08/13/18 08:54 WBC RBC Hgb Hct MCV MCH MCHC RDW Plt Count MPV Neut % (Auto) Lymph % (Auto) Millard % (Auto) Eos % (Auto) Baso % (Auto) Neut # (Auto) Lymph # (Auto) Millard # (Auto) Eos # (Auto) Baso # (Auto) WBC Differential Differential Comment Sodium 145 Potassium 4.3 Chloride 106 Carbon Dioxide 31.7 Anion Gap 7 BUN 10 Creatinine 1.41 H Estimated GFR 57 L Random Glucose 82 Hemoglobin A1c Calcium 8.3 L Phosphorus 3.4 Magnesium 2.2 Total Bilirubin 0.6 AST 22 ALT 27 Alkaline Phosphatase 58 Total Protein 6.8 Albumin 3.8 TSH Free T4 - Imaging ITS Impressions Lumbar Spine MRI 08/11/18 00:00 CONCLUSION: 1. Large central herniation at L2-3 causing severe canal stenosis. 2. Small central protrusion L4-5 without canal stenosis. 3. Mild right-sided broad-based protrusion L5-S1 without canal stenosis. Assessment and Plan - Assessment (1) Intractable low back pain Code(s): M54.5 - Low back pain Status: Acute (2) Lumbar radiculopathy, acute Code(s): M54.16 - Radiculopathy, lumbar region Status: Acute - Plan Acute on chronic back pain with acute radiculopathy. -CT scan does not indicate any acute abnormality -MRI of the lumbar spine was performed and indicated large central herniation at L2-L3 causing severe canal stenosis, small central protrusion L4-L5 without canal stenosis. Mild right-sided broad-based protrusion L5-S1 without canal stenosis -Percocet for pain control, Dilaudid for breakthrough pain. -We will give Toradol 30 mg IM x1 and start Robaxin IV -Physical therapy evaluation -Consult neurosurgery for evaluation and recommendations- SURGERY LATER TODAY ON L2-3 hemilaminotomy with microdiscectomy PT AND OT TO EVAL AND TREAT RENAL INSUFFICIENCY/DEHYDRATION FLUIDS AVOID NEPHROTOXIC MEDS CONSTIPATION- MULTIPLE MEDS GIVEN- HAD GOOD BMS AM LAB DVT prevention -Low risk, early ambulation Code Status: FULL CODE Discussed Condition With: RN AND PT AND CM Discharge Planning: PENDING NEUROSURGERY CLEARANCE
[2018-08-13] MEDS ORDERED: Chlorhexidine Gluconate 2% 1 Pack (2 Cloths) TOPICAL SCH (13:20)
[2018-08-13] MEDS ORDERED: Metoprolol Tartrate 25 MG Tablet PO SCH (13:20)
[2018-08-13] MEDS ORDERED: Sodium Chlor 0.9% Inj 500 ML IV.SIG SCH (14:00)
[2018-08-13] MEDS ORDERED: Neostigmine Inj 5 MG/5 ML Syringe IV.PUSH ONE (14:56)
[2018-08-13] MEDS ORDERED: Glycopyrrolate Inj 1 MG/5 ML Syringe IV.PUSH ONE (14:56)
[2018-08-13] MEDS ORDERED: Lidocaine PF 1% Inj 5 ML Syringe INFILTRATN ONE (14:56)
[2018-08-13] MEDS ORDERED: Phenylephrine/NS 1000 MCG/10ML Syringe IV.PUSH ONE (14:56)
[2018-08-13] MEDS: Gelatin Size 100 Topical Foam ONE ×2 (15:53→16:00)
[2018-08-13] MEDS: Thrombin Topical Soln 5,000 UNIT Vial TOPICAL ONE ×2 (15:53→16:00)
[2018-08-13] MEDS: Bupivacaine/Epinephrine 0.5% Inj 50 ML Vial ONE ×2 (15:53)
[2018-08-13] MEDS ORDERED: methylPREDNISolone acetate 40 MG/ML VIAL ONE (16:17)
--- NOTE | 2018-08-13 16:47 | P.OP ---
- Preoperative Diagnosis (1) Herniated nucleus pulposus, L2-3 (2) Cauda equina compression (3) Intractable low back pain (4) Lumbar radiculopathy, acute Date of procedure: 08/13/18 Procedure: Lumbar L2-3 left hemilaminotomy with microdiscectomy; microsurgical technique Anesthesia: ALOK Surgeon: Parker Moeller MD Tube Roller: Sendy Carlin Estimated blood loss (mL): 10 Operation and Findings: Following administration of general endotracheal anesthesia, patient received vancomycin 1 g intravenously. Sequential compression devices were placed for DVT prophylaxis. He was then turned in prone position on Duke frame and the Caden table and all pressure points adequately padded. The lumbar region was then shaved and prepped with a Betadine and ChloraPrep. Sterile draping undertaken with Ioban. Midline incision overlying the L2-3 levels was then made after infiltrating the skin with 0.5% Marcaine with epinephrine solution. The skin incision was made extending down through the fascia and then using the subperiosteal plane on the left side the muscular attachments to the spinous process and lamina were detached. Intraoperative fluoroscopy was used for level confirmation and further dissection undertaken using microtechnique with microscope magnification. The inferior portion of the left L2 and superior portion of the L3 lamina was then drilled out and the underlying ligamentum flavum also removed. There was severe spinal stenosis from ventral large disc herniation noted. Gentle thecal sac retraction with a root retractor undertaken and the disc fragment was removed with pituitary forceps and the spinal canal decompressed. Epidural venous stasis which he with the bipolar cautery along with Gelfoam and thrombin and bone wax used at the laminotomy edges for hemostasis. The area was then copiously irrigated with vancomycin solution. Depo-Medrol 40 mg was also injected in the epidural space. The retractors removed and the muscle fascia proximal using 2-0 Vicryl interrupted stitches. 3-0 Vicryl subcuticular stitches were also placed in an interrupted fashion and planned skin closure was with Mastisol and Steri-Strips. A sterile dressing was then applied and the patient then turned in the supine position and extubated and taken to recovery room in stable condition. There were no intraoperative complications and all sponge and needle count was correct at the end of the procedure. Estimated blood loss about 10 cc.
[2018-08-13] MEDS ORDERED: *Meperidine Inj 25 MG/ML Vial PERIprocedural Use ONLY ONE (16:58)
[2018-08-13] MEDS ORDERED: fentaNYL Citrate Inj 100 MCG/2 ML Ampul ONE (17:00)
--- NOTE | 2018-08-13 20:31 | XR ---
EXAM DATE: 08/13/2018 12:00 AM EDT AGE/SEX: 37 years / Male INDICATIONS: Level localization L2/3 CLINICAL DATA: This is the patient's initial encounter. Patient reports that signs and symptoms have been present for 1 day and indicates a pain score of Nonresponsive. MEDICAL/SURGICAL HISTORY: None. None. COMPARISON: No prior exams available for comparison. FINDINGS: A single view of the spine was performed. There is a surgical probe directed towards the L3 level. T here is normal alignment of the vertebral bodies without evidence of subluxation. There is decreased height at the L5-S1 disc level. Anterior marginal osteophytes are seen. CONCLUSION: Single lateral view with a surgical probe directed towards the L3 level. Electronically signed by: Jak Granados MD 08/13/2018 8:30 PM EDT
[2018-08-14] MEDS: Sod Chloride 0.9% Inj 1,000 ML IV.CONT SCH ×2 (04:56→13:19)
[2018-08-14] MEDS: Methocarbamol Inj 1,000 MG in Dextrose 5% in Water Inj 240 ML IV.SIG SCH ×2 (05:23)
[2018-08-14] MEDS: oxyCODONE/Acetaminophen 10/325 Tablet PO PRN ×2 (05:26→11:04)
[2018-08-14 06:19] LABS: Baso % (Auto) 0.1 % (0.0-2.0); Eos % (Auto) 0.1 % (0.0-4.0); Lymph # (Auto) 0.8 th/mm3 (1.0-4.8); Lymph % (Auto) 6.2 % (9.0-44.0); Mean Corpuscular HGB Conc 33.4 % (32.0-36.0); Mean Corpuscular Hemoglobin 29.3 pg (27.0-34.0); Mean Corpuscular Volume 87.9 fL (80.0-100.0); Mean Platelet Volume 8.2 fL (7.0-11.0); Mono # (Auto) 0.6 th/mm3 (0.0-0.9); Mono % (Auto) 4.6 % (0.0-8.0); Neut # (Auto) 11.5 th/mm3 (1.8-7.7); Platelet Count 286 th/mm3 (150-450); Red Blood Count 5.12 mil/mm3 (4.50-5.90); Red Cell Distribution Width 13.5 % (11.6-17.2); White Blood Count 12.9 th/mm3 (4.0-11.0)
[2018-08-14 06:46] LABS: Alanine Aminotransferase 27 U/L (12-78); Albumin 3.6 g/dL (3.4-5.0); Anion Gap 7 meq/L (5-15); Aspartate Aminotransferase 21 U/L (15-37); Blood Urea Nitrogen 11 mg/dL (7-18); Calcium 8.1 mg/dL (8.5-10.1); Carbon Dioxide 29.6 meq/L (21.0-32.0); Chloride 105 meq/L (98-107); Glomerular Filtration Rate 66 mL/min (>89); Glucose,Random 109 mg/dL (74-106); Magnesium 2.1 mg/dL (1.5-2.5); Phosphorus 3.1 mg/dL (2.5-4.9); Potassium 4.4 meq/L (3.5-5.1); Sodium 142 meq/L (136-145)
[2018-08-14 06:51] LABS: Alkaline Phosphatase 57 U/L (45-117); Total Protein 6.9 g/dL (6.4-8.2)
[2018-08-14] MEDS: Senna/Docusate Sodium 8.6/50 MG Tablet PO SCH (09:34)
[2018-08-14] MEDS: Sodium Chloride 0.9% 2 ML Flush BID IV.FLUSH SCH (09:34)
[2018-08-14 10:32] VITALS: RESP 18
--- NOTE | 2018-08-14 10:43 | P.PN ---
Subjective Interval history: Folllow up for low back pain, radiculopathy: S/P Lumbar L2-3 left hemilaminotomy with microdiscectomy; microsurgical technique 08/13. Pain well controlled, has only taken 1 p.o. narcotic overnight. Has been out of bed and ambulated to bathroom with walker. Having surgical site pain but otherwise the pain that brought him in has resolved, no pain radiating down the legs. No loss of bowel bladder dysfunction. Eating well. No nausea, no vomiting. No fever. Physical Exam Vital signs: Vital Signs 08/13/18 16:52 08/13/18 17:00 08/13/18 17:15 Temperature 97.6 F Pulse Rate 61 67 76 Respiratory Rate 18 18 18 Blood Pressure 121/65 124/84 124/71 Pulse Oximetry 100 100 95 08/13/18 17:30 08/13/18 20:00 08/14/18 00:00 Temperature 97.9 F 98.1 F Pulse Rate 55 L 77 73 Respiratory Rate 18 18 18 Blood Pressure 119/71 140/76 116/66 Pulse Oximetry 97 95 93 L 08/14/18 04:00 08/14/18 08:00 Temperature 97.5 F L 97.7 F Pulse Rate 74 72 Respiratory Rate 18 18 Blood Pressure 113/65 132/64 Pulse Oximetry 98 99 Intake & Output 08/13/18 08/14/18 08/14/18 18:59 06:59 18:59 Intake Total 1300 / 1300 1600 / 1600 100 / 100 Output Total 335 / 335 1500 / 1500 Balance 965 / 965 100 / 100 100 / 100 Weight 104.7 kg Intake: IV 100 / 100 1600 / 1600 100 / 100 NS Inj 1,000 ML @ 125 mls/hr IV 1000 / 1000 .CONT .Q8H [facility] Rx#:[id number] Robaxin Inj 1,000 MG In D5W Inj 500 / 500 240 ML @ 500 mls/hr IV.SIG Q8HR [facility] Rx#:[id number] Ancef Inj 1,000 MG In NS Inj 100 / 100 100 / 100 100 / 100 100 ML @ 200 mls/hr IV.SIG Q8H [facility] Rx#:[id number] Anesthesia Amount 1200 / 1200 Output: Urine 325 / 325 1500 / 1500 Estimated Blood Loss Other: # Voids 1 Date of Last Bowel Movement 08/10/18 Narrative: GENERAL: Well-developed, well-nourished, in no acute distress. alert and orientated HEENT: Head is normocephalic without any lesions or masses noted. Facial features are symmetric. Eyes: Pupils equal round reactive to light. Extraocular muscles are intact. Conjunctivae were clear. Oropharyngeal: Pharynx without any erythema edema. Tongue is midline without deviation. Buccal mucosa is moist without any masses or lesions NECK: Supple without any masses. Trachea midline no deviation. No JVD, no bruits are appreciated CARDIAC: Regular rhythm, regular rate. S1/S2 are heard. No murmurs gallops or rubs. LUNGS: Clear to auscultation bilaterally. No wheeze, rhonchi or rales. No use of accessory muscles on inspiration or expiration. ABDOMEN: Soft, nontender. Nondistended. Bowel sounds heard in all 4 quadrants. No organomegaly or masses. Negative rebound, negative guarding EXTREMITIES: No edema, pulses are equal bilaterally. No cyanosis or clubbing NEUROLOGY: Awake, alert oriented x3. Bilateral lower extremity strength 5 out of 5. Upper extremity strength 5 out of 5. LUMBAR SPINE: Dressing to lower back, clean dry and intact. Minimal tenderness on palpation. Results - Labs CBC & Chem 7: 08/14/18 05:27 08/14/18 05:27 Laboratory Results - last 24 hr 08/13/18 08/13/18 08/14/18 08:54 08:54 05:27 WBC 7.7 12.9 H D RBC 5.06 5.12 Hgb 15.1 15.0 Hct 44.2 45.0 MCV 87.3 87.9 MCH 29.8 29.3 MCHC 34.1 33.4 RDW 13.3 13.5 Plt Count 265 286 MPV 8.0 8.2 Neut % (Auto) 57.4 89.0 H Lymph % (Auto) 30.0 6.2 L [place] % (Auto) 8.9 H 4.6 Eos % (Auto) 3.3 0.1 Baso % (Auto) 0.4 0.1 Neut # (Auto) 4.4 11.5 H Lymph # (Auto) 2.3 0.8 L [place] # (Auto) 0.7 0.6 Eos # (Auto) 0.3 0.0 Baso # (Auto) 0.0 0.0 WBC Differential . . Differential Comment Auto diff final Auto diff final Sodium 145 Potassium 4.3 Chloride 106 Carbon Dioxide 31.7 Anion Gap 7 BUN 10 Creatinine 1.41 H Estimated GFR 57 L Random Glucose 82 Calcium 8.3 L Phosphorus 3.4 Magnesium 2.2 Total Bilirubin 0.6 AST 22 ALT 27 Alkaline Phosphatase 58 Total Protein 6.8 Albumin 3.8 08/14/18 05:27 WBC RBC Hgb Hct MCV MCH MCHC RDW Plt Count MPV Neut % (Auto) Lymph % (Auto) [place] % (Auto) Eos % (Auto) Baso % (Auto) Neut # (Auto) Lymph # (Auto) [place] # (Auto) Eos # (Auto) Baso # (Auto) WBC Differential Differential Comment Sodium 142 Potassium 4.4 Chloride 105 Carbon Dioxide 29.6 Anion Gap 7 BUN 11 Creatinine 1.25 Estimated GFR 66 L Random Glucose 109 H Calcium 8.1 L Phosphorus 3.1 Magnesium 2.1 Total Bilirubin 0.6 AST 21 ALT 27 Alkaline Phosphatase 57 Total Protein 6.9 Albumin 3.6 - Imaging Impressions Lumbar Spine X-Ray 08/13/18 00:00 CONCLUSION: Single lateral view with a surgical probe directed towards the L3 level. - Procedures S/P Lumbar L2-3 left hemilaminotomy with microdiscectomy; microsurgical technique 08/13 Assessment and Plan - Assessment (1) Intractable low back pain Code(s): M54.5 - Low back pain Status: Acute (2) Lumbar radiculopathy, acute Code(s): M54.16 - Radiculopathy, lumbar region Status: Acute - Plan 37-year-old male with known history of back pain who presented to the hospital because of acute onset of back pain and difficulty in ambulating. Patient states that his normal state of health until 2 days ago, when he was rolling up a balloon house and when he was bent over rolling it he heard a pop and had sudden onset of back pain where he only could roll over onto his side. He tried to get up to ambulate but was unable to. States that the only he can move is if he is completely bent over at the waist and take very short steps. Patient states that he has had back injury approximately 4 years ago where he fell off a horse and fracturing L2-L3-L4 transverse processes which has healed. Approx a year, had another injury, strained his back. Patient states that he has been having pain that radiates down his left leg, he is noticed some numbness and tingling going down his left leg as well. Because he was unable to ambulate he went to emergency department for evaluation. Patient had workup done with CT scan which did not indicate any acute abnormality. Acute on chronic back pain with acute radiculopathy. -MRI of the lumbar spine was performed and indicated large central herniation at L2-L3 causing severe canal stenosis, small central protrusion L4-L5 without canal stenosis. Mild right-sided broad-based protrusion L5-S1 without canal stenosis -Appreciate neurosurgical input -S/P Lumbar L2-3 left hemilaminotomy with microdiscectomy; microsurgical technique 08/13 -Continue with pain management -Continue postop care -Physical therapy evaluation -Pt. improving, pain well controlled Acute kidney injury secondary to dehydration Continue with IV fluids Creatinine improving, 1.25 today. Leukocytosis, WBC 12.9. Receive Solu-Medrol Intra-Op. Monitor WBC Constipation, now resolved Continue a bowel regimen DVT prophylaxis, patient ambulatory, SCDs Code Status: Full code Discussed Condition With: RN, pt. Discharge Planning: Discharge when ok by neurosurgery, poss. today
--- NOTE | 2018-08-14 10:45 | P.PNNS ---
Subjective Interval history: pain controlled. +void, without issues Physical Exam Vital signs: Vital Signs 08/13/18 16:52 08/13/18 17:00 08/13/18 17:15 Temperature 97.6 F Pulse Rate 61 67 76 Respiratory Rate 18 18 18 Blood Pressure 121/65 124/84 124/71 Pulse Oximetry 100 100 95 08/13/18 17:30 08/13/18 20:00 08/14/18 00:00 Temperature 97.9 F 98.1 F Pulse Rate 55 L 77 73 Respiratory Rate 18 18 18 Blood Pressure 119/71 140/76 116/66 Pulse Oximetry 97 95 93 L 08/14/18 04:00 08/14/18 08:00 Temperature 97.5 F L 97.7 F Pulse Rate 74 72 Respiratory Rate 18 18 Blood Pressure 113/65 132/64 Pulse Oximetry 98 99 Intake & Output 08/13/18 08/14/18 08/14/18 18:59 06:59 18:59 Intake Total 1300 / 1300 1600 / 1600 100 / 100 Output Total 335 / 335 1500 / 1500 Balance 965 / 965 100 / 100 100 / 100 Weight 104.7 kg Intake: IV 100 / 100 1600 / 1600 100 / 100 NS Inj 1,000 ML @ 125 mls/hr IV 1000 / 1000 .CONT .Q8H [facility] Rx#:[id number] Robaxin Inj 1,000 MG In D5W Inj 500 / 500 240 ML @ 500 mls/hr IV.SIG Q8HR [facility] Rx#:[id number] Ancef Inj 1,000 MG In NS Inj 100 / 100 100 / 100 100 / 100 100 ML @ 200 mls/hr IV.SIG Q8H [facility] Rx#:[id number] Anesthesia Amount 1200 / 1200 Output: Urine 325 / 325 1500 / 1500 Estimated Blood Loss Other: # Voids 1 Date of Last Bowel Movement 08/10/18 Narrative: E4 AOx3 5/5 strength in the UE and LEs incision: CDI, with steri strips Assessment and Plan - Assessment (1) Herniated nucleus pulposus, L2-3 Code(s): M51.26 - Other intervertebral disc displacement, lumbar region Status : Acute (2) Intractable low back pain Code(s): M54.5 - Low back pain Status: Acute (3) Lumbar radiculopathy, acute Code(s): M54.16 - Radiculopathy, lumbar region Status: Acute - Plan 37 yo POD 1 L2-3 discectomy -without any issues, cleared by neurosurgery for dc today -ok to shower 48 hours post op -neurosurgery to schedule followup
[2018-08-14 14:09] VITALS: BP 126/69; PULSE 80; TEMP 98.6; O2SAT 95
--- NOTE | 2018-08-14 15:28 | P.DS ---
Date of admission: 08/11/18 04:20 Primary care physician: UNKNOWN Attending physician on discharge: Dang Bustillo Anticipated date of discharge: 08/14/18 Brief History from admission: 37-year-old male with known history of back pain who presented to the hospital because of acute onset of back pain and difficulty in ambulating. Patient states that his normal state of health until yesterday when he was rolling up a balloon house and when he was bent over rolling it he heard a pop and had sudden onset of back pain where he only could roll over onto his side. He tried to get up to ambulate but was unable to. States that the only he can move is if he is completely bent over at the waist and take very short steps. Patient states that he has had back injury approximately 4 years ago where he fell off a horse and fracturing L2-L3-L4 transverse processes which has healed and he was doing well in the year ago he had another injury where he strained his back. But he has been doing well up until this injury. Patient states that he has been having pain that radiates down his left leg, he is noticed some numbness and tingling going down his left leg as well. Because he was unable to ambulate he went to emergency department for evaluation. Patient had workup done with CT scan which did not indicate any acute abnormality. Because the patient was having ambulation difficulty the ER physician recommended the patient be admitted the hospital for further evaluation. DS: Diagnosis - Discharge Diagnosis (1) Intractable low back pain Status: Acute (2) Lumbar radiculopathy, acute Status: Acute DS: Medications - Discharge Medications Prescriptions: oxycodone-acetaminophen 1 tab PO Q4H PRN 3 Days #18 tab PRN Reason: pain 1 to 5 DS: Summary Hospital Course: 37-year-old male with known history of back pain who presented to the hospital because of acute onset of back pain and difficulty in ambulating. Patient states that his normal state of health until 2 days ago, when he was rolling up a balloon house and when he was bent over rolling it he heard a pop and had sudden onset of back pain where he only could roll over onto his side. He tried to get up to ambulate but was unable to. States that the only he can move is if he is completely bent over at the waist and take very short steps. Patient states that he has had back injury approximately 4 years ago where he fell off a horse and fracturing L2-L3-L4 transverse processes which has healed. Approx a year, had another injury, strained his back. Patient states that he has been having pain that radiates down his left leg, he is noticed some numbness and tingling going down his left leg as well. Because he was unable to ambulate he went to emergency department for evaluation. Patient had workup done with CT scan which did not indicate any acute abnormality. Acute on chronic back pain with acute radiculopathy. -MRI of the lumbar spine was performed and indicated large central herniation at L2-L3 causing severe canal stenosis, small central protrusion L4-L5 without canal stenosis. Mild right-sided broad-based protrusion L5-S1 without canal stenosis -Appreciate neurosurgical input, recommended surgery. -S/P Lumbar L2-3 left hemilaminotomy with microdiscectomy; microsurgical technique 08/13 -Postop pain management -PT evaluation, patient tolerated well. -No postop complications. Acute kidney injury secondary to dehydration Put on IV fluids, creatinine improved. Leukocytosis, WBC 12.9. Received Solu-Medrol Intra-Op. Monitored WBC, afebrile. Constipation, now resolved Continued on bowel regimen DVT prophylaxis, patient ambulatory, SCDs Clear for discharge by neurosurgery Discharge home Follow-up with neurosurgery in 2 weeks Patient cannot go back to work until he is cleared by neurosurgery. - Time Spent with Patient Total time spent providing and/or coordinating discharge services: Less than 30 minutes - Quality: VTE Deep Vein Thrombosis/Pulmonary Embolism Present on Admission: Yes Exam Vital signs: Vital Signs 08/13/18 16:52 08/13/18 17:00 08/13/18 17:15 Temperature 97.6 F Pulse Rate 61 67 76 Respiratory Rate 18 18 18 Blood Pressure 121/65 124/84 124/71 Pulse Oximetry 100 100 95 08/13/18 17:30 08/13/18 20:00 08/14/18 00:00 Temperature 97.9 F 98.1 F Pulse Rate 55 L 77 73 Respiratory Rate 18 18 18 Blood Pressure 119/71 140/76 116/66 Pulse Oximetry 97 95 93 L 08/14/18 04:00 08/14/18 08:00 08/14/18 12:00 Temperature 97.5 F L 97.7 F 98.6 F Pulse Rate 74 72 80 Respiratory Rate 18 18 18 Blood Pressure 113/65 132/64 126/69 Pulse Oximetry 98 99 95 Intake & Output 08/13/18 08/14/18 08/14/18 18:59 06:59 18:59 Intake Total 1300 / 1300 1600 / 1600 1100 / 1100 Output Total 335 / 335 1500 / 1500 Balance 965 / 965 100 / 100 1100 / 1100 Weight 104.7 kg Intake: IV 100 / 100 1600 / 1600 1100 / 1100 NS Inj 1,000 ML @ 125 mls/hr IV 1000 / 1000 1000 / 1000 .CONT .Q8H [facility] Rx#:[id number] Robaxin Inj 1,000 MG In D5W Inj 500 / 500 240 ML @ 500 mls/hr IV.SIG Q8HR [facility] Rx#:[id number] Ancef Inj 1,000 MG In NS Inj 100 / 100 100 / 100 100 / 100 100 ML @ 200 mls/hr IV.SIG Q8H [facility]EL[facility] Rx#:[id number] Anesthesia Amount 1200 / 1200 Output: Urine 325 / 325 1500 / 1500 Estimated Blood Loss Other: # Voids 1 Date of Last Bowel Movement 08/10/18 Results Procedures completed during hospitalization: S/P Lumbar L2-3 left hemilaminotomy with microdiscectomy; microsurgical technique 08/13 Labs on day of discharge: Labs from last 24 hours 08/14/18 08/14/18 05:27 05:27 WBC 12.9 H D RBC 5.12 Hgb 15.0 Hct 45.0 MCV 87.9 MCH 29.3 MCHC 33.4 RDW 13.5 Plt Count 286 MPV 8.2 Neut % (Auto) 89.0 H Lymph % (Auto) 6.2 L [place] % (Auto) 4.6 Eos % (Auto) 0.1 Baso % (Auto) 0.1 Neut # (Auto) 11.5 H Lymph # (Auto) 0.8 L [place] # (Auto) 0.6 Eos # (Auto) 0.0 Baso # (Auto) 0.0 WBC Differential . Differential Comment Auto diff final Sodium 142 Potassium 4.4 Chloride 105 Carbon Dioxide 29.6 Anion Gap 7 BUN 11 Creatinine 1.25 Estimated GFR 66 L Random Glucose 109 H Calcium 8.1 L Phosphorus 3.1 Magnesium 2.1 Total Bilirubin 0.6 AST 21 ALT 27 Alkaline Phosphatase 57 Total Protein 6.9 Albumin 3.6 - Impressions ITS Impressions Lumbar Spine MRI 10/10/18 00:00 CONCLUSION: 1. Large central herniation at L2-3 causing severe canal stenosis. 2. Small central protrusion L4-5 without canal stenosis. 3. Mild right-sided broad-based protrusion L5-S1 without canal stenosis. Lumbar Spine X-Ray 08/13/18 00:00 CONCLUSION: Single lateral view with a surgical probe directed towards the L3 level. Discharge Plan - Discharge Disposition Patient Disposition: 01 Discharge Home - Discharge Condition Condition: Stable - Discharge Order Discharge Orders: Discharge Order (Routine); Ordered 08/14/18 Ordered By: Johanny Valderrama - Discharge Details Anticipated Discharge Date: 08/14/18 - Physicians Team Primary Care Provider: UNKNOWN, Attending Provider: Dang Bustillo Other Providers: Parker Moeller MD - Rxs /Orders / Referrals /Forms Prescriptions: New oxycodone-acetaminophen 5-325 mg Tablet 1 tab PO Q4H PRN (Reason: pain 1 to 5) 3 Days Qty: 18 RF: 0 No Action No Known Home Medications Referrals: Parker Moeller MD [NEUROSURGERY] - See Instructions (follow up in 2 weeks ) UNKNOWN, [Primary Care Provider] - See Instructions (CALL [facility] [employer] @ [phone] FOR A FOLLOW UP APPOINTMENT (NEED MEDICAL RECORD INFORMATION)) Forms: Work Release/Restrictions - Discharge Instructions Patient Printed Instructions: Laminectomy (DC), Sciatica (DC), Acute Low Back Pain (ED) Additional Instructions: No driving, no working x 2 weeks. Must see neurosurgery before returning to duties as [employer]. - Post Discharge Care Plan Care Plan Goals: Your Health Problems: Goals to Promote Your Health: * To prevent worsening of your condition * To maintain your health at the optimal level Directions to Meet Your Goals: * Take your medications as prescribed * Follow your dietary instruction * Follow activity as directed * Keep your appointments as scheduled * Take your immunizations and boosters as scheduled * If your symptoms worsen call your PCP * If no PCP go to Urgent Care or Emergency Room Smoking is dangerous to your health. Avoid second hand smoke. You may reach the 24-hour crisis hotline for domestic abuse at .
== END 2018-08-14 16:06 | disposition home or self-care (01) ==
LOC: PH3 08-11 04:10 → PHEDDLT 08-11 04:10 → N04 08-11 16:37
PROVIDERS: ADMIT Hospitalist; ATTEND Hospitalist